=== PATIENT | female | born 1995 | race Two or more races ===

== ENCOUNTER 2018-12-20 13:40 | Emergency (ER) | payer MEDICAID ==
[~2018-12-20] VITALS: Ht 157.5 cm; Wt 75.3 kg
--- NOTE | 2018-12-20 13:50 | NUR ---
ED Nurse Note: Patient walked into ED from home c/o pain on right armpit for 5 days. per pt, she feels a bump for couple months and now the pain is getting worse. patient is waiting for the referral from her PCP to [facility].
[2018-12-20] MEDS ORDERED: Clindamycin 150mg cap ORAL ONE (15:00)
[2018-12-20 15:02] VITALS: BP 111/72
--- NOTE | 2018-12-20 15:04 | Emergency Room Report ---
History of Present Illness General Chief Complaint: Skin Rash/Abscess Source: Patient Present Illness HPI 23-year-old female presents to the emergency department complaining of 10 out of 10 in severity localized pain to the right axilla 5 days progressive with erythema warmth and tenderness. She denies fevers or chills she denies history of similar symptoms in the past. Patient denies history of immunocompromise. Palpation and movement of the right arm exacerbated her pain she denies relieving factors at this time. Allergies: Coded Allergies: No Known Allergies (Unverified , 12/20/18) Patient History Past Medical History: see triage record Past Surgical History: none Pertinent Family History: none Last Menstrual Period: 12/12/18 Now: No Reviewed Nursing Documentation: PMH: Agreed; PSxH: Agreed Nursing Documentation-PMH Past Medical History: No Stated History Review of Systems All Other Systems: negative except mentioned in HPI Physical Exam Vital Signs Date Time Temp Pulse Resp B/P (MAP) Pulse Ox O2 Delivery O2 Flow Rate FiO2 12/20/18 13:45 98.4 77 18 114/75 100 Room Air Sp02 EP Interpretation: reviewed, normal General Appearance: no apparent distress, alert, GCS 15, non-toxic, mild distress Head: normocephalic, atraumatic Eyes: bilateral eye normal inspection, bilateral eye PERRL ENT: hearing grossly normal, normal voice Neck: full range of motion Respiratory: lungs clear, normal breath sounds, speaking full sentences Cardiovascular #1: regular rate, rhythm Musculoskeletal: back normal, gait/station normal, normal range of motion, non- tender Neurologic: alert, oriented x3, responsive, motor strength/tone normal, sensory intact, speech normal, grossly normal Psychiatric: judgement/insight normal Skin: normal color, warm/dry, well hydrated, other - right axillary abscess 3cm with erythema and warmth, no LAD. Medical Decision Making PA Attestation Dr. rosales is my supervising Physician whom patient management has been discussed with. Diagnostic Impression: Primary Impression: Abscess ER Course 23-year-old female presents to the emergency department complaining of 10 out of 10 in severity localized pain to the right axilla 5 days progressive with erythema warmth and tenderness. She denies fevers or chills she denies history of similar symptoms in the past. Patient denies history of immunocompromise. Palpation and movement of the right arm exacerbated her pain she denies relieving factors at this time. Ddx considered but are not limited to cellulitis, abscess, cystic acne, necrotizing fasciitis, insect bite. Vital signs: are WNL, pt. is afebrile H&PE are most consistent with [ ] ORDERS: none required at this time, the diagnosis is clinical ED INTERVENTIONS: Pt. declines I & D, She wants to treat just orally, has dermatology referral from her PMD awaiting appt. - Clindamycin PO -I do not identify an emergent condition at this time. With current presentation , pt. is stable for close outpatient follow up and conservative treatment. D/ w pt. to return promptly to ED with worsening or new symptoms.- Pt. verbalizes' understanding and agreement with proposed treatment plan.proposed treatment plan. DISCHARGE: At this time pt. is stable for d/c to home. Will provide printed patient care instructions, and any necessary prescriptions. Care plan and follow up instructions have been discussed with the patient prior to discharge. Last Vital Signs Date Time Temp Pulse Resp B/P (MAP) Pulse Ox O2 Delivery O2 Flow Rate FiO2 12/20/18 13:45 98.4 77 18 114/75 100 Room Air Disposition: HOME, SELF-CARE Condition: Stable Scripts No Active Prescriptions or Reported Meds Patient Instructions: Abscess Additional Instructions: Take medications as directed. Follow up with a Primary Care Provider in 3-5 days, even if your symptoms have resolved. --Please review list of primary care clinics, if you do not already have a primary care provider Return sooner to ED if new symptoms occur, or current symptoms become worse. - Please note that this Emergency Department Report was dictated using [employer] developer technology software, occasionally this can lead to erroneous entry secondary to interpretation by the dictation equipment. Jennifer Ruiz Dec 20, 2018 15:04
[2018-12-20] MEDS ORDERED: LIDOCAINE HC28.35 GM TP (15:09)
[2018-12-20] MEDS ORDERED: CLINDAMYCIN HC300 MG ORAL (15:09)
[2018-12-20] MEDS ORDERED: ACETAMINOPHEN-1 EAC1 ORAL (15:09)
[2018-12-20 15:20] VITALS: BP 111/72
--- NOTE | 2018-12-20 15:20 | NUR ---
ER DISCHARGE NOTE: Patient is cleared to be discharged per ERMD, pt is aox4, on room air, with stable vital signs. pt was given dc and prescription instructions, pt was able to verbalize understanding, pt id band removed without complications. pt is able to ambulate with steady gait. pt took all belongings.
== END 2018-12-20 15:20 | disposition home or self-care (01) ==
LOC: EMR 14:20
DX: L02.411 Cutaneous abscess of right axilla (principal)
CPT/HCPCS: 99282